=== PATIENT | female | born 1980 | race Caucasian/White ===

== ENCOUNTER → 2021-06-19 | Outpatient (CLI) | payer OTHER ==
[~2021-06-19] MED LIST: SINCALIDE 1.32 MCG in IV NORMAL SALINE 50ML 30 ML IV ONE
--- NOTE | 2021-06-19 09:23 | RAD ---
EXAM: ULTRASOUND ABDOMEN LIMITED CLINICAL HISTORY: EPIGASTRIC PAIN COMPARISON: None available. TECHNIQUE: Limited ultrasound examination of the right upper quadrant of the abdomen was performed. FINDINGS: The pancreas is mostly obscured by overlying bowel gas.. Liver: 15.8 cm in length. The hepatic margin is smooth and the hepatic echogenicity is normal. The re are no focal liver lesions. Flow seen within the portal veins. Biliary: No cholelithiasis. No wall thickening or pericholecystic fluid. The gallbladder is distende d. There is no pain with direct transducer pressure over the gallbladder. Common bile duct measures 0.2 cm. Right Kidney: 11.9 cm in bipolar length. Normal renal cortical echotexture and thickness. No focal re nal lesion, shadowing renal calculus or hydronephrosis. Visualized portions of the abdominal aorta and inferior vena cava are unremarkable. There is no free fluid in the subhepatic space. IMPRESSION: Gallbladder is distended. This is likely related to fasting state although this could also be a nonsp ecific finding for chronic cholecystitis. This can be correlated with patient's symptoms and if clini yanira indicated additional imaging with HIDA scan may provide additional details. Electronically signed by: Que Seymour MD (06/19/2021 9:21 AM) [id number]
--- NOTE | 2021-06-19 10:58 | RAD ---
INDICATION: Abdomen pain COMPARISON: Ultrasound from earlier same day TECHNIQUE: 5.5mCi of Tc99m Choletec was injected intravenously followed by scintigraphic images of the abdomen. 1.3 mcg of CCK was then injected and a gallbladder ejection fraction was calculated. FINDINGS: Appropriate radiotracer clearance from the blood pool. Appropriate radiotracer excretion into the biliary tree. Prompt passage of contrast into the small bowel. Visualization of the gallbladder prior to the 60 minute time point. Gallbladder ejection fraction is 53 percent. IMPRESSION: * No scintigraphic evidence of acute cholecystitis or high grade biliary obstruction. * No evidence of biliary dyskinesia. Electronically signed by: Waldemar Josue MD (06/19/2021 10:55 AM) [id number]
== END ==
LOC: US 07:16
PROVIDERS: ATTEND Internal Medicine Gastroenterology
DX: K82.8 Other specified diseases of gallbladder (principal)
CPT/HCPCS: 76705; 78227; A9537; J2805

== ENCOUNTER 2022-01-15 01:53 | Emergency (ER) | payer OTHER ==
[~2022-01-15] VITALS: Ht 162.6 cm; Wt 69.0 kg
--- NOTE | 2022-01-15 01:59 | PHYS DOC ---
General Adult EDM: Chief Complaint: ABDOMINAL PAIN HPI: HPI: Patient is a 41 year old female who presents with recurrent right upper quadrant and epigastric abdominal pain. She has had this pain off and on for years. She had a cholecystectomy, hoping that this would improve her symptoms. Her pain has remained, however. She has seen GI multiple times, she has seen her primary care physician as recently as an within the last 24 hours. She denies chest pain, cough, dyspnea. She denies lower abdominal pain. She denies radiation of pain. She denies constipation or diarrhea. She denies urinary symptoms. She reports mild nausea, no vomiting. No specific exacerbating or relieving factors, other than direct palpation, on occasion. By the time she arrived in the ER, her pain is now resolved. She has had a previous cholecystectomy, she is also had gastric bypass. She reports that when she saw her PCP yesterday, they increased her Cymbalta dosing, she has a schedule appointment for follow-up in the next 6 weeks. She has been told that her physicians believe that this pain has been caused by her fibromyalgia. Review of Systems: Review of Systems: Constitutional: Denies fever or chills. [] HENT: Denies nasal congestion or sore throat. [] Respiratory: Denies cough or shortness of breath. [] Cardiovascular: Denies chest pain or edema. [] GI: Right upper quadrant abdominal pain. Occasional nausea, no vomiting. No diarrhea or constipation. : Denies urinary symptoms. Musculoskeletal: Denies back pain or joint pain. [] Integument: Denies rash. [] Neurologic: Denies headache, focal weakness or sensory changes. [] Psychiatric: Anxiety and stress as it pertains to pain symptoms. Heart Score: C/O Chest Pain: No Risk Factors: Risk Factors: DM, Current or recent (<one month) smoker, HTN, HLP, family history of CAD, obesity. Risk Scores: Score 0 - 3: 2.5% MACE over next 6 weeks - Discharge Home Score 4 - 6: 20.3% MACE over next 6 weeks - Admit for Clinical Observation Score 7 - 10: 72.7% MACE over next 6 weeks - Early Invasive Strategies Allergies: Allergies: Allergies Coded Allergies Type Severity Reaction Last Updated Verified No Known Drug Allergies 08/19/21 No Physical Exam: PE: Constitutional: Well developed, well nourished, no acute distress, non-toxic appearance. [] HENT: Normocephalic, atraumatic Eyes: No scleral icterus Neck: Normal range of motion, no tenderness, supple, no stridor. [] Cardiovascular: Heart rate regular rhythm, 2 radial and +2 posterior tibial pulses bilaterally Lungs & Thorax: Bilateral breath sounds clear to auscultation [] Abdomen: Abdomen is soft, nondistended, mildly tender to palpation the right upper quadrant, no guarding, no rebound tenderness. No lower abdominal tenderness. No palpable masses organomegaly. No CVA tenderness. No flank abdominal ecchymoses. No palpable pulsatile mass. Skin: Warm, dry, no erythema, no rash. No jaundice. Back: No tenderness, no CVA tenderness. [] Extremities: No tenderness, no cyanosis, no clubbing, ROM intact, no edema. No calf tenderness. Neurologic: Alert and oriented X 3, normal motor function, normal sensory function, no focal deficits noted. [] Psychologic: Affect normal, judgement normal, mood normal. [] EKG: EKG: [] Radiology/Procedures: Radiology/Procedures: [] Course & Med Decision Making: Course & Med Decision Making Pertinent Labs and Imaging studies reviewed. (See chart for details) Patient's pain has remained resolved while in the ED. She declined pain medication. Laboratory exams are unremarkable. I did offer imaging, though I did explain that imaging is unlikely to be helpful, she has had multiple previous imaging studies. She is seen GI multiple times. I did offer to prescribe something for breakthrough pain for discharge home. She accepts this. She reports that she has plenty of antiemetics at home if she needs it. I told her to contact her PCP and outpatient GI for further evaluation and treatment. Strict return precautions are given. She verbalizes understanding. Ed Disclaimer: Ed Disclaimer: This electronic medical record was generated, in whole or in part, using a voice recognition dictation system. Departure Departure Impression: Primary Impression: Recurrent upper abdominal pain Disposition: HOME / SELF CARE / HOMELESS Condition: STABLE Referrals: EDIS DAO MD (PCP) Patient Instructions: Abdominal Pain (Nonspecific) Additional Instructions: Return to the ER for more severe pain, uncontrolled vomiting, dehydration, chest pain, shortness of breath, vomiting blood, temperature 100.4 or higher, if you are acutely injured or for any other concerns. Please contact your primary care doctor and GI physician for follow-up. Use the medication as needed/as directed. Scripts Hydrocodone Bit/Acetaminophen (HYDROCODONE-APAP 5-325 ) 1 Tab Tablet 1 TAB PO PRN Q6HRS PRN for PAIN, #15 TAB 0 Refills Prov: RICHARD MONTILLA DO 01/15/22 RICHARD MONTILLA DO Jan 15, 2022 01:59
[2022-01-15 03:18] LABS: BASO % 0 % (0-3); EOS # 0.2 x10^3/uL (0.0-0.7); EOS % 2 % (0-3); HEMATOCRIT 38.1 % (36.0-47.0); LYMPH # 1.5 x10^3/uL (1.0-4.8); LYMPH % 16 % (24-48); MEAN CORPUSCULAR HEMOGLOBIN 29 pg (25-35); MEAN CORPUSCULAR HGB CONC 34 g/dL (31-37); MEAN CORPUSCULAR VOLUME 85 fL (79-100); MONO # 0.6 x10^3/uL (0.0-1.1); MONO % 6 % (0-9); NEUT # 7.2 x10^3/uL (1.8-7.7); NEUT % 76 % (31-73); PLATELET COUNT 290 x10^3/uL (140-400); RED BLOOD COUNT 4.48 x10^6/uL (3.50-5.40); RED CELL DISTRIBUTION WIDTH 13.4 % (11.5-14.5); WHITE BLOOD COUNT 9.5 x10^3/uL (4.0-11.0)
[2022-01-15 03:20] LABS: BILIRUBIN,URINE NEGATIVE (NEG); CLARITY,URINE CLEAR; COLOR,URINE YELLOW
[2022-01-15 03:21] LABS: BACTERIA,URINE FEW /HPF (0-FEW); NITRITE,URINE NEGATIVE (NEG); PROTEIN,URINE NEGATIVE (NEG-TRACE); RBC,URINE 0 /HPF (0-2)
[2022-01-15 03:26] LABS: CREATININE 0.7 mg/dL (0.6-1.0); GFR 93.2; POTASSIUM 3.9 mmol/L (3.5-5.1)
[2022-01-15 03:31] LABS: ALBUMIN 4.2 g/dL (3.4-5.0); ALBUMIN/GLOBULIN RATIO 1.3 (1.0-1.7); TOTAL BILIRUBIN 0.5 mg/dL (0.2-1.0); TOTAL PROTEIN 7.5 g/dL (6.4-8.2)
[2022-01-15] MEDS ORDERED: HYDR-2761 PO (03:57)
[2022-01-15 04:00] VITALS: BP 120/73
== END 2022-01-15 03:54 | disposition home or self-care (01) ==
LOC: ER 01:53
DX: R10.11 Right upper quadrant pain (principal); R10.13 Epigastric pain; Z90.49 Acquired absence of other specified parts of digestive tract
CPT/HCPCS: 36415; 80053; 81001; 81025; 83690; 85025; 99283